=== PATIENT | male | born 1955 | race Caucasian/White ===

== ENCOUNTER 2017-12-30 12:33 | Observation (INO) | payer BC ==
[2017-12-30] MEDS ORDERED: Albuterol/Ipratropium 3.0-0.5 MG/3 ML Neb Soln NEB ONE (13:09)
[2017-12-30] MEDS ORDERED: methylPREDNISolone Sodium Succinate 125 MG/2 ML SDV IVPUSH ONE (13:19)
[2017-12-30] MEDS ORDERED: Sodium Chloride 0.9% 1,000 ML IV ONE (13:19)
[2017-12-30] MEDS ORDERED: methylPREDNISolone Sodium Succinate 125 MG/2 ML SDV ONE (13:35)
[2017-12-30] MEDS ORDERED: Acetaminophen 500 MG Tab PO ONE (13:44)
[2017-12-30 14:01] LABS: CHLORIDE,CL 104 mmol/L (98-107); SODIUM,NA 138 mmol/L (136-148)
[2017-12-30] MEDS ORDERED: cefTRIAXone 1 GM in Premix Bag 1 BAG IV ONE (14:23)
[2017-12-30] MEDS ORDERED: Azithromycin 500 MG in Sodium Chloride 0.9% 500 ML IV ONE (14:23)
--- NOTE | 2017-12-30 14:36 | EDM.PDOC ---
ED HPI GENERAL MEDICAL PROBLEM - General Chief Complaint: Respiratory Problem Stated Complaint: COLD Time Seen by Provider: 12/30/17 12:34 Source of Information: Reports: Patient History Limitations: Reports: No Limitations - History of Present Illness INITIAL COMMENTS - FREE TEXT/NARRATIVE: HISTORY AND PHYSICAL: History of present illness: Patient is a 62-year-old male who presents to the emergency room today with complaints of cough, fever, sore throat from coughing and chest congestion. He states he has not felt well since and has had a temperature of 103 at home. Patient denies any chest pain, abdominal pain, nausea, vomiting, diarrhea or constipation. He has no history of smoking. No history of lung diseases or conditions. Review of systems: As per history of present illness and below otherwise all systems reviewed and negative. Past medical history: As per history of present illness and as reviewed below otherwise noncontributory. Surgical history: As per history of present illness and as reviewed below otherwise noncontributory. Social history: No reported history of drug or alcohol abuse. Family history: As per history of present illness and as reviewed below otherwise noncontributory. Physical exam: General: Well-developed and well-nourished 62-year-old male. Alert and oriented. Nontoxic appearing but mildly unwell. HEENT: Atraumatic, normocephalic, pupils equal and reactive bilaterally, negative for conjunctival pallor or scleral icterus, mucous membranes moist, mild errythema to throat no exudate, neck supple, nontender, trachea midline. No drooling or trismus noted. No meningeal signs Lungs: Diminished lung sounds to bases bilaterally, breath sounds equal bilaterally, chest nontender. Heart: S1S2, regular rate and rhythm without overt murmur Abdomen: Soft, nondistended, nontender. Negative for masses or hepatosplenomegaly. Negative for costovertebral tenderness. Pelvis: Stable nontender. Genitourinary: Deferred. Rectal: Deferred. Skin: Intact, warm, dry. No lesions or rashes noted. Extremities: Atraumatic, negative for cords or calf pain. Neurovascular unremarkable. Neuro: Awake, alert, oriented. Cranial nerves II through XII unremarkable. Cerebellum unremarkable. Motor and sensory unremarkable throughout. Exam nonfocal. Notes: Upon patient arrival his oxygen saturation is 90-92% in room air, 94% on 2L. He does have diminished lung sounds to the lower lobes bilaterally. Appears he didn 't as he is resting on the cot with his eyes closed and a grimaced look. He is willing to have labs, IV fluids and medications and imaging done at this time. CBC shows a normal white count. CMP is within normal limits. Patient's influenza screen is negative. Chest x-ray shows no pneumonia or infiltrate. Patient remains at 90% while on room air. Do not feel comfortable with him going home. The patient and state that they are not comfortable being discharged. We'll consult Dr. Casillas for admission and add new labs. Dr. Casillas is agreeable to accepting this patient for observation. Patient and are aware. We'll continue to monitor. Diagnostics: CBC, CMP, troponin, x-ray, influenza strep, blood cultures 2 Therapeutics: IV fluid, Solu-Medrol, Rocephin, azithromycin Impression: Hypoxia Viral respiratory illness Plan: Observation to Med/Surg Definitive disposition and diagnosis as appropriate pending reevaluation and review of above. Onset Date: 12/28/17 Duration: Day(s): Location: Reports: Face, Neck, Chest Throat Pain Score (Numeric/FACES): 9 - Related Data Allergies Allergy/AdvReac Type Severity Reaction Status Date / Time No Known Allergies Allergy Verified 09/25/16 07:53 Home Meds: Home Meds Insulin Glargine,Hum.Rec.Anlog [Lantus Solostar] 35 unit SQ DAILY #1 pen [Rx] Past Medical History HEENT History: Reports: None Cardiovascular History: Reports: None Respiratory History: Reports: None Gastrointestinal History: Reports: None Genitourinary History: Reports: None Musculoskeletal History: Reports: None Neurological History: Reports: None Psychiatric History: Reports: None Endocrine/Metabolic History: Reports: Diabetes, Type II Hematologic History: Reports: None Immunologic History: Reports: None Oncologic (Cancer) History: Reports: None Dermatologic History: Reports: None - Infectious Disease History Infectious Disease History: Reports: Chicken Pox, Measles, Mumps - Past Surgical History Head Surgeries/Procedures: Reports: None HEENT Surgical History: Reports: None Cardiovascular Surgical History: Reports: None Respiratory Surgical History: Reports: None GI Surgical History: Reports: Hernia Repair/Other Male Surgical History: Reports: Other (See Below) Endocrine Surgical History: Reports: None Neurological Surgical History: Reports: None Musculoskeletal Surgical History: Reports: None Oncologic Surgical History: Reports: None Dermatological Surgical History: Reports: None Social & Family History - Family History Family Medical History: Noncontributory - Tobacco Use Smoking Status *Q: Never Smoker Second Hand Smoke Exposure: No - Caffeine Use Caffeine Use: Reports: Coffee, Tea Caffeine Use Comment: 1 cup of coffee. - Alcohol Use Days Per Week of Alcohol Use: 0 - Recreational Drug Use Recreational Drug Use: No ED ROS GENERAL - Review of Systems Review Of Systems: ROS reveals no pertinent complaints other than HPI. ED EXAM, GENERAL - Physical Exam Exam: See Below (See dictation) Course - Vital Signs Last Recorded V/S: Last Vital Signs Temp 101.5 F H 12/30/17 13:53 Pulse 123 H 12/30/17 12:46 Resp 20 12/30/17 12:46 BP 158/96 H 12/30/17 12:46 Pulse Ox 92 L 12/30/17 12:46 - Orders/Labs/Meds Orders: Active Orders 24 hr Category Date Time Status RT Aerosol Therapy [RC] ASDIRECTED Care 12/30/17 13:09 Active Chest 1V Frontal [CR] Stat Exams 12/30/17 13:09 Taken CULTURE BLOOD [BC] Stat Lab 12/30/17 14:33 Received CULTURE BLOOD [BC] Stat Lab 12/30/17 15:00 Received CULTURE STREP A CONFIRMATION [RM] Stat Lab 12/30/17 14:25 Results INFLUENZA A+B AG SCREEN [RM] Stat Lab 12/30/17 13:13 Ordered STREP SCRN A RAPID W CULT CONF [RM] Stat Lab 12/30/17 14:25 Ordered UA W/MICROSCOPIC [URIN] Stat Lab 12/30/17 14:23 Ordered Azithromycin [Zithromax] 500 mg Med 12/30/17 14:23 Active Sodium Chloride 0.9% [Normal Saline] 500 ml IV ONETIME Blood Culture x2 Reflex Set [OM.PC] Stat Oth 12/30/17 14:23 Ordered Medication Orders Azithromycin 500 mg/ Sodium (Chloride) 500 mls @ 250 mls/hr IV ONETIME ONE Stop: 12/30/17 16:22 Ceftriaxone Sodium 1,000 mg/ (Dextrose/Water) 50 mls @ 200 mls/hr IV ONETIME GORAN Last Admin: 12/30/17 15:05 Dose: 200 mls/hr Labs: Laboratory Tests 12/30/17 12/30/17 12/30/17 Range/Units 13:30 13:30 13:30 WBC 7.79 (4.0-11.0) K/uL RBC 5.69 (4.50-5.90) M/uL Hgb 17.4 H (13.0-17.0) g/dL Hct 49.9 (38.0-50.0) % MCV 87.7 (80.0-98.0) fL MCH 30.6 (27.0-32.0) pg MCHC 34.9 (31.0-37.0) g/dL RDW Std Deviation 44.8 (28.0-62.0) fl RDW Coeff of Bony 14 (11.0-15.0) % Plt Count 218 (150-400) K/uL MPV 9.70 (7.40-12.00) fL Neut % (Auto) 74.6 (48.0-80.0) % Lymph % (Auto) 16.0 (16.0-40.0) % Dunn % (Auto) 7.3 (0.0-15.0) % Eos % (Auto) 1.8 (0.0-7.0) % Baso % (Auto) 0.3 (0.0-1.5) % Neut # (Auto) 5.8 H (1.4-5.7) K/uL Lymph # (Auto) 1.3 (0.6-2.4) K/uL Dunn # (Auto) 0.6 (0.0-0.8) K/uL Eos # (Auto) 0.1 (0.0-0.7) K/uL Baso # (Auto) 0.0 (0.0-0.1) K/uL Nucleated RBC % 0.0 /100WBC Nucleated RBCs # 0 K/uL Sodium 138 (136-148) mmol/L Potassium 3.9 (3.5-5.1) mmol/L Chloride 104 (98-107) mmol/L Carbon Dioxide 24.4 (21.0-32.0) mmol/L BUN 12 (7.0-18.0) mg/dL Creatinine 1.0 (0.8-1.3) mg/dL Est Cr Clr Drug Dosing 79.08 mL/min Estimated GFR (MDRD) > 60.0 ml/min Glucose 173 H (74-106) mg/dL Calcium 8.3 L (8.5-10.1) mg/dL Total Bilirubin 0.7 (0.2-1.0) mg/dL AST 23 (15-37) IU/L ALT 30 (14-63) IU/L Alkaline Phosphatase 74 (46-116) U/L Troponin I < 0.050 (0.000-0.056) ng/mL Total Protein 7.4 (6.4-8.2) g/dL Albumin 3.4 (3.4-5.0) g/dL Globulin 4.0 H (2.0-3.5) g/dL Albumin/Globulin Ratio 0.9 L (1.3-2.8) Meds: Medications Generic Name Dose Route Start Last Admin Trade Name Freq PRN Reason Stop Dose Admin Azithromycin 500 mg/ Sodium 500 mls @ 250 mls/hr 12/30/17 14:23 Chloride IV 12/30/17 16:22 ONETIME ONE Ceftriaxone Sodium 1,000 mg/ 50 mls @ 200 mls/hr 12/30/17 15:15 12/30/17 15: 05 Dextrose/Water IV 200 mls/hr ONETIME GORAN Administration Discontinued Medications Generic Name Dose Route Start Last Admin Trade Name Rafaelq PRN Reason Stop Dose Admin Acetaminophen 1,000 mg 12/30/17 13:44 12/30/17 13:53 Tylenol Extra Strength PO 12/30/17 13:45 1,000 mg ONETIME ONE Administration Albuterol/Ipratropium 3 ml 12/30/17 13:09 12/30/17 13:18 Duoneb 3.0-0.5 Mg/3 Ml NEB 12/30/17 13:10 3 ml ONETIME ONE Administration Sodium Chloride 1,000 mls @ 999 mls/hr 12/30/17 13:19 12/30/17 13:34 Normal Saline IV 12/30/17 14:19 999 mls/hr STAT ONE Administration Ceftriaxone Sodium/Dextrose 1 50 mls @ 100 mls/hr 12/30/17 14:23 12/30/17 15: 05 gm/ Premix IV 12/30/17 14:52 Not Given ONETIME ONE Methylprednisolone Sodium Succinate 125 mg 12/30/17 13:19 12/30/17 13:34 Solu-Medrol IVPUSH 12/30/17 13:20 125 mg ONETIME ONE Administration Methylprednisolone Sodium Succinate Confirm 12/30/17 13:35 12/30/17 13:42 Solu-Medrol Administered 12/30/17 13:36 Not Given Dose 125 mg .ROUTE .STK-MED ONE Departure - Departure Time of Disposition: 15:12 Disposition: Refer to Observation Clinical Impression: Hypoxia, Viral respiratory illness - Discharge Information - My Orders Last 24 Hours: My Active Orders 12/30/17 13:09 RT Aerosol Therapy [RC] ASDIRECTED Chest 1V Frontal [CR] Stat 12/30/17 13:13 INFLUENZA A+B AG SCREEN [RM] Stat 12/30/17 14:23 UA W/MICROSCOPIC [URIN] Stat Azithromycin [Zithromax] 500 mg Sodium Chloride 0.9% [Normal Saline] 500 ml IV ONETIME Blood Culture x2 Reflex Set [OM.PC] Stat 12/30/17 14:25 CULTURE STREP A CONFIRMATION [RM] Stat STREP SCRN A RAPID W CULT CONF [RM] Stat 12/30/17 14:33 CULTURE BLOOD [BC] Stat 12/30/17 15:00 CULTURE BLOOD [BC] Stat - Assessment/Plan Last 24 Hours: My Active Orders 12/30/17 13:09 RT Aerosol Therapy [RC] ASDIRECTED Chest 1V Frontal [CR] Stat 12/30/17 13:13 INFLUENZA A+B AG SCREEN [RM] Stat 12/30/17 14:23 UA W/MICROSCOPIC [URIN] Stat Azithromycin [Zithromax] 500 mg Sodium Chloride 0.9% [Normal Saline] 500 ml IV ONETIME Blood Culture x2 Reflex Set [OM.PC] Stat 12/30/17 14:25 CULTURE STREP A CONFIRMATION [RM] Stat STREP SCRN A RAPID W CULT CONF [RM] Stat 12/30/17 14:33 CULTURE BLOOD [BC] Stat 12/30/17 15:00 CULTURE BLOOD [BC] Stat
[2017-12-30] MEDS ORDERED: Azithromycin 500 MG in Sodium Chloride 0.9% 250 ML IV ONE (15:15)
[2017-12-30] MEDS ORDERED: cefTRIAXone 1,000 MG in Dextrose 5% in Water 50 ML IV SCH ×2 (15:15)
[2017-12-30] MEDS ORDERED: Acetaminophen 325 MG Tab PO PRN (15:45)
[2017-12-30] MEDS: Sodium Chloride 0.9% 1,000 ML IV SCH (16:02)
[2017-12-30] MEDS: Insulin Aspart 100 Units/ML 3 ML Pen SUBCUT SCH (17:02)
[2017-12-30] MEDS ORDERED: Insulin Glargine,Human Rec. Analog 100 Units/ML 3 ML Pen SUBCUT SCH (21:00)
[2017-12-30] MEDS ORDERED: Enoxaparin 40 MG/0.4 ML Syringe SUBCUT SCH (22:15)
--- NOTE | 2017-12-30 22:17 | PCM.HP ---
H&P History of Present Illness - General Admit Problem/Dx: Admission Diagnosis/Problem Admission Diagnosis/Problem Hypoxia - History of Present Illness Initial Comments - Free Text/Narative: 62 yo male who presents with four day history of myagias, cough, and fevers. PAtient reports coworker has been sick with same symptoms. He reports generalized weakness and sore throat from coughing. Throat Pain Score (Numeric/FACES): 9 - Related Data Allergies/Adverse Reactions: Allergies Allergy/AdvReac Type Severity Reaction Status Date / Time No Known Allergies Allergy Verified 09/25/16 07:53 Home Medications: Home Meds Insulin Glargine,Hum.Rec.Anlog [Lantus Solostar] 50 unit SQ BEDTIME 12/30/17 [ History] Past Medical History HEENT History: Reports: None Cardiovascular History: Reports: None Respiratory History: Reports: None Gastrointestinal History: Reports: None Genitourinary History: Reports: None Musculoskeletal History: Reports: None Neurological History: Reports: None Psychiatric History: Reports: None Endocrine/Metabolic History: Reports: Diabetes, Type II Hematologic History: Reports: None Immunologic History: Reports: None Oncologic (Cancer) History: Reports: None Dermatologic History: Reports: None - Infectious Disease History Infectious Disease History: Reports: Chicken Pox, Measles, Mumps - Past Surgical History Head Surgeries/Procedures: Reports: None HEENT Surgical History: Reports: None Cardiovascular Surgical History: Reports: None Respiratory Surgical History: Reports: None GI Surgical History: Reports: Hernia Repair/Other Male Surgical History: Reports: Other (See Below) Endocrine Surgical History: Reports: None Neurological Surgical History: Reports: None Musculoskeletal Surgical History: Reports: None Oncologic Surgical History: Reports: None Dermatological Surgical History: Reports: None Social & Family History - Family History Family Medical History: Noncontributory - Tobacco Use Smoking Status *Q: Never Smoker Second Hand Smoke Exposure: No - Caffeine Use Caffeine Use: Reports: Coffee, Tea Caffeine Use Comment: 1 cup of coffee. - Alcohol Use Days Per Week of Alcohol Use: 0 - Recreational Drug Use Recreational Drug Use: No H&P Review of Systems - Review of Systems: Review Of Systems: ROS reveals no pertinent complaints other than HPI. Exam - Exam Exam: See Below - Vital Signs Vital Signs: Last Vital Signs Temp 36.8 C 12/30/17 15:10 Pulse 118 H 12/30/17 15:10 Resp 22 H 12/30/17 15:10 BP 155/86 H 12/30/17 15:10 Pulse Ox 96 12/30/17 15:10 Weight: 103.555 kg - Exam General: Alert, Oriented HEENT: Mucosa Moist & [place] Neck: Supple. No: JVD Lungs: Clear to Auscultation, Normal Respiratory Effort. No: Crackles, Rales, Wheezing Cardiovascular: Regular Rate, Regular Rhythm GI/Abdominal Exam: Normal Bowel Sounds, Soft, Non-Tender, No Distention Extremities: Non-Tender, No Pedal Edema Skin: Warm, Dry, Intact - Patient Data Lab Results Last 24 hrs: Laboratory Results - last 24 hr 12/30/17 12/30/17 12/30/17 Range/Units 13:30 13:30 13:30 WBC 7.79 (4.0-11.0) K/uL RBC 5.69 (4.50-5.90) M/uL Hgb 17.4 H (13.0-17.0) g/dL Hct 49.9 (38.0-50.0) % MCV 87.7 (80.0-98.0) fL MCH 30.6 (27.0-32.0) pg MCHC 34.9 (31.0-37.0) g/dL RDW Std Deviation 44.8 (28.0-62.0) fl RDW Coeff of Bony 14 (11.0-15.0) % Plt Count 218 (150-400) K/uL MPV 9.70 (7.40-12.00) fL Neut % (Auto) 74.6 (48.0-80.0) % Lymph % (Auto) 16.0 (16.0-40.0) % Pope % (Auto) 7.3 (0.0-15.0) % Eos % (Auto) 1.8 (0.0-7.0) % Baso % (Auto) 0.3 (0.0-1.5) % Neut # (Auto) 5.8 H (1.4-5.7) K/uL Lymph # (Auto) 1.3 (0.6-2.4) K/uL Pope # (Auto) 0.6 (0.0-0.8) K/uL Eos # (Auto) 0.1 (0.0-0.7) K/uL Baso # (Auto) 0.0 (0.0-0.1) K/uL Nucleated RBC % 0.0 /100WBC Nucleated RBCs # 0 K/uL Sodium 138 (136-148) mmol/L Potassium 3.9 (3.5-5.1) mmol/L Chloride 104 (98-107) mmol/L Carbon Dioxide 24.4 (21.0-32.0) mmol/L BUN 12 (7.0-18.0) mg/dL Creatinine 1.0 (0.8-1.3) mg/dL Est Cr Clr Drug Dosing 79.08 mL/min Estimated GFR (MDRD) > 60.0 ml/min Glucose 173 H (74-106) mg/dL POC Glucose (60-110) mg/dL Calcium 8.3 L (8.5-10.1) mg/dL Total Bilirubin 0.7 (0.2-1.0) mg/dL AST 23 (15-37) IU/L ALT 30 (14-63) IU/L Alkaline Phosphatase 74 (46-116) U/L Troponin I < 0.050 (0.000-0.056) ng/mL Total Protein 7.4 (6.4-8.2) g/dL Albumin 3.4 (3.4-5.0) g/dL Globulin 4.0 H (2.0-3.5) g/dL Albumin/Globulin Ratio 0.9 L (1.3-2.8) Urine Color Urine Appearance Urine pH (5.0-8.0) Ur Specific Alexander (1.001-1.035) Urine Protein (NEGATIVE) mg/dL Urine Glucose (UA) (NEGATIVE) mg/dL Urine Ketones (NEGATIVE) mg/dL Urine Occult Blood (NEGATIVE) Urine Nitrite (NEGATIVE) Urine Bilirubin (NEGATIVE) Urine Urobilinogen (<2.0) EU/dL Ur Leukocyte Esterase (NEGATIVE) Urine RBC (0-2/HPF) Urine WBC (0-5/HPF) Ur Epithelial Cells (NONE-FEW) Urine Bacteria (NEGATIVE) 12/30/17 12/30/17 Range/Units 16:07 18:40 WBC (4.0-11.0) K/uL RBC (4.50-5.90) M/uL Hgb (13.0-17.0) g/dL Hct (38.0-50.0) % MCV (80.0-98.0) fL MCH (27.0-32.0) pg MCHC (31.0-37.0) g/dL RDW Std Deviation (28.0-62.0) fl RDW Coeff of Bony (11.0-15.0) % Plt Count (150-400) K/uL MPV (7.40-12.00) fL Neut % (Auto) (48.0-80.0) % Lymph % (Auto) (16.0-40.0) % Pope % (Auto) (0.0-15.0) % Eos % (Auto) (0.0-7.0) % Baso % (Auto) (0.0-1.5) % Neut # (Auto) (1.4-5.7) K/uL Lymph # (Auto) (0.6-2.4) K/uL Pope # (Auto) (0.0-0.8) K/uL Eos # (Auto) (0.0-0.7) K/uL Baso # (Auto) (0.0-0.1) K/uL Nucleated RBC % /100WBC Nucleated RBCs # K/uL Sodium (136-148) mmol/L Potassium (3.5-5.1) mmol/L Chloride (98-107) mmol/L Carbon Dioxide (21.0-32.0) mmol/L BUN (7.0-18.0) mg/dL Creatinine (0.8-1.3) mg/dL Est Cr Clr Drug Dosing mL/min Estimated GFR (MDRD) ml/min Glucose (74-106) mg/dL POC Glucose 183 H (60-110) mg/dL Calcium (8.5-10.1) mg/dL Total Bilirubin (0.2-1.0) mg/dL AST (15-37) IU/L ALT (14-63) IU/L Alkaline Phosphatase (46-116) U/L Troponin I (0.000-0.056) ng/mL Total Protein (6.4-8.2) g/dL Albumin (3.4-5.0) g/dL Globulin (2.0-3.5) g/dL Albumin/Globulin Ratio (1.3-2.8) Urine Color YELLOW Urine Appearance HAZY Urine pH 5.5 (5.0-8.0) Ur Specific Alexander 1.020 (1.001-1.035) Urine Protein NEGATIVE (NEGATIVE) mg/dL Urine Glucose (UA) 250 H (NEGATIVE) mg/dL Urine Ketones >=80 (NEGATIVE) mg/dL Urine Occult Blood NEGATIVE (NEGATIVE) Urine Nitrite NEGATIVE (NEGATIVE) Urine Bilirubin NEGATIVE (NEGATIVE) Urine Urobilinogen 0.2 (<2.0) EU/dL Ur Leukocyte Esterase NEGATIVE (NEGATIVE) Urine RBC 0-1 (0-2/HPF) Urine WBC 2-4 (0-5/HPF) Ur Epithelial Cells RARE (NONE-FEW) Urine Bacteria FEW (NEGATIVE) Result Diagrams: 12/31/17 05:20 12/31/17 05:20 Cb Results Last 24 hrs: Microbiology 12/30/17 14:25 Group A Streptococcus Rapid Screen - Final Throat NEGATIVE STREP A SCREEN 12/30/17 13:13 Influenza Type A Antigen Screen - Final Nasopharyngeal Swab NEGATIVE INFLUENZA A VIRUS AG Influenza Type B Antigen Screen - Final NEGATIVE INFLUENZA B VIRUS AG Problem List Initiated/Reviewed/Updated: Yes Orders Last 24hrs: Active Orders 24 hr Category Date Time Status Admission Status [Patient Status] [ADT] Stat ADT 12/30/17 14:44 Active Blood Glucose Check, Bedside [RC] TIDMEALS Care 12/30/17 17:00 Active Oxygen Therapy [RC] PRN Care 12/30/17 22:10 Ordered RT Aerosol Therapy [RC] ASDIRECTED Care 12/30/17 13:09 Active Up ad Heather [RC] ASDIRECTED Care 12/30/17 22:10 Ordered VTE/DVT Education [RC] PER UNIT ROUTINE Care 12/30/17 22:10 Ordered Vital Signs [RC] Q4H Care 12/30/17 22:10 Ordered [employer] Diet [DIET] Diet 12/30/17 Dinner Active Regular Diet [DIET] Diet 12/30/17 Breakfast Ordered Chest 1V Frontal [CR] Stat Exams 12/30/17 13:09 Taken BASIC METABOLIC PANEL,BMP [CHEM] Routine Lab 12/31/17 05:00 Ordered CBC WITH AUTO DIFF [HEME] Routine Lab 12/31/17 05:00 Ordered CULTURE BLOOD [BC] Stat Lab 12/30/17 14:33 Received CULTURE BLOOD [BC] Stat Lab 12/30/17 15:00 Received CULTURE SPUTUM + SMEAR [RM] Routine Lab 12/30/17 15:40 Ordered CULTURE STREP A CONFIRMATION [] Stat Lab 12/30/17 14:25 Results INFLUENZA A+B AG SCREEN [] Stat Lab 12/30/17 13:13 Ordered STREP SCRN A RAPID W CULT CONF [RM] Stat Lab 12/30/17 14:25 Ordered UA W/MICROSCOPIC [URIN] Stat Lab 12/30/17 18:40 Ordered Acetaminophen [Tylenol] Med 12/30/17 15:45 Active 650 mg PO Q6H PRN Azithromycin [Zithromax] Med 12/31/17 15:00 Ordered 500 mg PO Q24H Enoxaparin [Lovenox] Med 12/30/17 22:15 Ordered 40 mg SUBCUT Q24H Insulin Aspart [NovoLOG] Med 12/30/17 17:00 Active See Protocol SUBCUT TIDAC Insulin Glarg,Human.Rec.Analog [LantUS Solostar] Med 12/30/17 21:00 Active 50 units SUBCUT BEDTIME Sodium Chloride 0.9% [Normal Saline] 1,000 ml Med 12/30/17 15:45 Active IV ASDIRECTED cefTRIAXone [Rocephin] Med 12/31/17 15:00 Ordered 1,000 mg IVPUSH Q24H cefTRIAXone [Rocephin] 1,000 mg Med 12/30/17 15:15 Active Dextrose 5% in Water 50 ml IV ONETIME Blood Culture x2 Reflex Set [OM.PC] Stat Oth 12/30/17 14:23 Ordered Sequential Compression Device [OM.PC] Per Unit Routine Oth 12/30/17 22:11 Ordered Resuscitation Status Routine Resus Stat 12/30/17 22:10 Ordered Medication Orders Acetaminophen (Tylenol) 650 mg PO Q6H PRN PRN Reason: Pain Azithromycin (Zithromax) 500 mg PO Q24H GORAN Ceftriaxone Sodium (Rocephin) 1,000 mg IVPUSH Q24H GORAN Enoxaparin Sodium (Lovenox) 40 mg SUBCUT Q24H GORAN Ceftriaxone Sodium 1,000 mg/ (Dextrose/Water) 50 mls @ 200 mls/hr IV ONETIME GORAN Last Admin: 12/30/17 15:05 Dose: 200 mls/hr Sodium Chloride (Normal Saline) 1,000 mls @ 125 mls/hr IV ASDIRECTED GORAN Last Admin: 12/30/17 16:02 Dose: 125 mls/hr Insulin Aspart (Novolog) 0 unit SUBCUT TIDAC [facility]; Protocol Last Admin: 12/30/17 17:02 Dose: 2 units Insulin Glargine (Lantus Solostar) 50 units SUBCUT BEDTIME GORAN Last Admin: 12/30/17 21:53 Dose: 50 units Assessment/Plan Comment:: 62 yo male with pmh of DM who is admitted with pneumonia. CXR clear but symptoms are suggestive of pneumonia. We will treat with Rocephin and azithromycin. Patient received solumedrol in the ED. Will resume lantus.
[2017-12-31] MEDS: Sodium Chloride 0.9% 1,000 ML IV SCH (01:57)
[2017-12-31 06:09] LABS: CHLORIDE,CL 107 mmol/L (98-107); SODIUM,NA 140 mmol/L (136-148)
[2017-12-31] MEDS: Insulin Aspart 100 Units/ML 3 ML Pen SUBCUT SCH (08:06)
--- NOTE | 2017-12-31 08:46 | PCM.DCSUM1 ---
Discharge Summary - Discharge Data Discharge Date: 12/31/17 Discharge Disposition: Home, Self-Care 01 Condition: Good - Patient Summary/Data Hospital Course: 62 yo male who presents with four day history of myagias, cough, and fevers. Chest x-ray was clear. Patient was admitted for pneumonia. He was treated with Rocephin and Azithromycin. His fevers had resolved and today he is requesting discharge. He was discharged home on Azithromycin for five more days. - Patient Instructions Diet: Diabetic Diet - Discharge Plan Prescriptions/Med Rec: Azithromycin [IJD: Azithromycin] 250 mg PO DAILY #6 tab Home Medications: Home Meds Insulin Glargine,Hum.Rec.Anlog [Lantus Solostar] 50 unit SQ BEDTIME 12/30/17 [ History] Azithromycin [IJD: Azithromycin] 250 mg PO DAILY #6 tab 12/31/17 [Rx] Patient Handouts: Shortness of Breath, Adult, [id number] Referrals: Jassi Maldonado MD [Ordering Only Provider] - - Patient Data Vitals - Most Recent: Last Vital Signs Temp 36.8 C 12/31/17 04:00 Pulse 96 12/31/17 04:00 Resp 18 12/31/17 04:00 BP 124/65 12/31/17 04:00 Pulse Ox 95 12/31/17 04:00 Weight - Most Recent: 103.555 kg I&O - Last 24 hours: Intake & Output 12/30/17 12/31/17 12/31/17 22:59 06:59 14:59 Intake Total 250 1800 Output Total 1600 Balance 250 200 Lab Results - Last 24 hrs: Laboratory Results - last 24 hr 12/30/17 12/30/17 12/30/17 Range/Units 13:30 13:30 13:30 WBC 7.79 (4.0-11.0) K/uL RBC 5.69 (4.50-5.90) M/uL Hgb 17.4 H (13.0-17.0) g/dL Hct 49.9 (38.0-50.0) % MCV 87.7 (80.0-98.0) fL MCH 30.6 (27.0-32.0) pg MCHC 34.9 (31.0-37.0) g/dL RDW Std Deviation 44.8 (28.0-62.0) fl RDW Coeff of Bony 14 (11.0-15.0) % Plt Count 218 (150-400) K/uL MPV 9.70 (7.40-12.00) fL Neut % (Auto) 74.6 (48.0-80.0) % Lymph % (Auto) 16.0 (16.0-40.0) % Johnston % (Auto) 7.3 (0.0-15.0) % Eos % (Auto) 1.8 (0.0-7.0) % Baso % (Auto) 0.3 (0.0-1.5) % Neut # (Auto) 5.8 H (1.4-5.7) K/uL Lymph # (Auto) 1.3 (0.6-2.4) K/uL Johnston # (Auto) 0.6 (0.0-0.8) K/uL Eos # (Auto) 0.1 (0.0-0.7) K/uL Baso # (Auto) 0.0 (0.0-0.1) K/uL Nucleated RBC % 0.0 /100WBC Nucleated RBCs # 0 K/uL Sodium 138 (136-148) mmol/L Potassium 3.9 (3.5-5.1) mmol/L Chloride 104 (98-107) mmol/L Carbon Dioxide 24.4 (21.0-32.0) mmol/L BUN 12 (7.0-18.0) mg/dL Creatinine 1.0 (0.8-1.3) mg/dL Est Cr Clr Drug Dosing 79.08 mL/min Estimated GFR (MDRD) > 60.0 ml/min Glucose 173 H (74-106) mg/dL POC Glucose (60-110) mg/dL Calcium 8.3 L (8.5-10.1) mg/dL Total Bilirubin 0.7 (0.2-1.0) mg/dL AST 23 (15-37) IU/L ALT 30 (14-63) IU/L Alkaline Phosphatase 74 (46-116) U/L Troponin I < 0.050 (0.000-0.056) ng/mL Total Protein 7.4 (6.4-8.2) g/dL Albumin 3.4 (3.4-5.0) g/dL Globulin 4.0 H (2.0-3.5) g/dL Albumin/Globulin Ratio 0.9 L (1.3-2.8) Urine Color Urine Appearance Urine pH (5.0-8.0) Ur Specific Roy (1.001-1.035) Urine Protein (NEGATIVE) mg/dL Urine Glucose (UA) (NEGATIVE) mg/dL Urine Ketones (NEGATIVE) mg/dL Urine Occult Blood (NEGATIVE) Urine Nitrite (NEGATIVE) Urine Bilirubin (NEGATIVE) Urine Urobilinogen (<2.0) EU/dL Ur Leukocyte Esterase (NEGATIVE) Urine RBC (0-2/HPF) Urine WBC (0-5/HPF) Ur Epithelial Cells (NONE-FEW) Urine Bacteria (NEGATIVE) 12/30/17 12/30/17 12/31/17 Range/Units 16:07 18:40 05:20 WBC 8.93 (4.0-11.0) K/uL RBC 5.22 (4.50-5.90) M/uL Hgb 15.7 (13.0-17.0) g/dL Hct 45.9 (38.0-50.0) % MCV 87.9 (80.0-98.0) fL MCH 30.1 (27.0-32.0) pg MCHC 34.2 (31.0-37.0) g/dL RDW Std Deviation 44.8 (28.0-62.0) fl RDW Coeff of Bony 14 (11.0-15.0) % Plt Count 247 (150-400) K/uL MPV 9.90 (7.40-12.00) fL Neut % (Auto) 84.3 H (48.0-80.0) % Lymph % (Auto) 10.3 L (16.0-40.0) % Johnston % (Auto) 5.4 (0.0-15.0) % Eos % (Auto) 0.0 (0.0-7.0) % Baso % (Auto) 0.0 (0.0-1.5) % Neut # (Auto) 7.5 H (1.4-5.7) K/uL Lymph # (Auto) 0.9 (0.6-2.4) K/uL Johnston # (Auto) 0.5 (0.0-0.8) K/uL Eos # (Auto) 0.0 (0.0-0.7) K/uL Baso # (Auto) 0.0 (0.0-0.1) K/uL Nucleated RBC % 0.0 /100WBC Nucleated RBCs # 0 K/uL Sodium (136-148) mmol/L Potassium (3.5-5.1) mmol/L Chloride (98-107) mmol/L Carbon Dioxide (21.0-32.0) mmol/L BUN (7.0-18.0) mg/dL Creatinine (0.8-1.3) mg/dL Est Cr Clr Drug Dosing mL/min Estimated GFR (MDRD) ml/min Glucose (74-106) mg/dL POC Glucose 183 H (60-110) mg/dL Calcium (8.5-10.1) mg/dL Total Bilirubin (0.2-1.0) mg/dL AST (15-37) IU/L ALT (14-63) IU/L Alkaline Phosphatase (46-116) U/L Troponin I (0.000-0.056) ng/mL Total Protein (6.4-8.2) g/dL Albumin (3.4-5.0) g/dL Globulin (2.0-3.5) g/dL Albumin/Globulin Ratio (1.3-2.8) Urine Color YELLOW Urine Appearance HAZY Urine pH 5.5 (5.0-8.0) Ur Specific Roy 1.020 (1.001-1.035) Urine Protein NEGATIVE (NEGATIVE) mg/dL Urine Glucose (UA) 250 H (NEGATIVE) mg/dL Urine Ketones >=80 (NEGATIVE) mg/dL Urine Occult Blood NEGATIVE (NEGATIVE) Urine Nitrite NEGATIVE (NEGATIVE) Urine Bilirubin NEGATIVE (NEGATIVE) Urine Urobilinogen 0.2 (<2.0) EU/dL Ur Leukocyte Esterase NEGATIVE (NEGATIVE) Urine RBC 0-1 (0-2/HPF) Urine WBC 2-4 (0-5/HPF) Ur Epithelial Cells RARE (NONE-FEW) Urine Bacteria FEW (NEGATIVE) 12/31/17 12/31/17 Range/Units 05:20 05:20 WBC (4.0-11.0) K/uL RBC (4.50-5.90) M/uL Hgb (13.0-17.0) g/dL Hct (38.0-50.0) % MCV (80.0-98.0) fL MCH (27.0-32.0) pg MCHC (31.0-37.0) g/dL RDW Std Deviation (28.0-62.0) fl RDW Coeff of Bony (11.0-15.0) % Plt Count (150-400) K/uL MPV (7.40-12.00) fL Neut % (Auto) (48.0-80.0) % Lymph % (Auto) (16.0-40.0) % Johnston % (Auto) (0.0-15.0) % Eos % (Auto) (0.0-7.0) % Baso % (Auto) (0.0-1.5) % Neut # (Auto) (1.4-5.7) K/uL Lymph # (Auto) (0.6-2.4) K/uL Johnston # (Auto) (0.0-0.8) K/uL Eos # (Auto) (0.0-0.7) K/uL Baso # (Auto) (0.0-0.1) K/uL Nucleated RBC % /100WBC Nucleated RBCs # K/uL Sodium 140 (136-148) mmol/L Potassium 4.0 (3.5-5.1) mmol/L Chloride 107 (98-107) mmol/L Carbon Dioxide 24.3 (21.0-32.0) mmol/L BUN 18 (7.0-18.0) mg/dL Creatinine 1.0 (0.8-1.3) mg/dL Est Cr Clr Drug Dosing 79.08 mL/min Estimated GFR (MDRD) > 60.0 ml/min Glucose 263 H (74-106) mg/dL POC Glucose 234 H (60-110) mg/dL Calcium 8.3 L (8.5-10.1) mg/dL Total Bilirubin (0.2-1.0) mg/dL AST (15-37) IU/L ALT (14-63) IU/L Alkaline Phosphatase (46-116) U/L Troponin I (0.000-0.056) ng/mL Total Protein (6.4-8.2) g/dL Albumin (3.4-5.0) g/dL Globulin (2.0-3.5) g/dL Albumin/Globulin Ratio (1.3-2.8) Urine Color Urine Appearance Urine pH (5.0-8.0) Ur Specific Roy (1.001-1.035) Urine Protein (NEGATIVE) mg/dL Urine Glucose (UA) (NEGATIVE) mg/dL Urine Ketones (NEGATIVE) mg/dL Urine Occult Blood (NEGATIVE) Urine Nitrite (NEGATIVE) Urine Bilirubin (NEGATIVE) Urine Urobilinogen (<2.0) EU/dL Ur Leukocyte Esterase (NEGATIVE) Urine RBC (0-2/HPF) Urine WBC (0-5/HPF) Ur Epithelial Cells (NONE-FEW) Urine Bacteria (NEGATIVE) MEGAN Results - Last 24 hrs: Microbiology 12/30/17 14:25 Group A Streptococcus Rapid Screen - Final Throat NEGATIVE STREP A SCREEN 12/30/17 13:13 Influenza Type A Antigen Screen - Final Nasopharyngeal Swab NEGATIVE INFLUENZA A VIRUS AG Influenza Type B Antigen Screen - Final NEGATIVE INFLUENZA B VIRUS AG Med Orders - Current: Current Medications Acetaminophen (Tylenol) 650 mg PO Q6H PRN PRN Reason: Pain Azithromycin (Zithromax) 500 mg PO Q24H [facility] Enoxaparin Sodium (Lovenox) 40 mg SUBCUT Q24H [facility] Last Admin: 12/30/17 23:27 Dose: 40 mg Ceftriaxone Sodium 1,000 mg/ (Dextrose/Water) 50 mls @ 200 mls/hr IV ONETIME [facility] Last Admin: 12/30/17 15:05 Dose: 200 mls/hr Sodium Chloride (Normal Saline) 1,000 mls @ 125 mls/hr IV ASDIRECTED [facility] Last Admin: 12/31/17 01:57 Dose: 125 mls/hr Ceftriaxone Sodium/Dextrose 1 (gm/ Premix) 50 mls @ 100 mls/hr IV Q24H [facility] Insulin Aspart (Novolog) 0 unit SUBCUT TIDAC [facility]; Protocol Last Admin: 12/31/17 08:06 Dose: 4 units Insulin Glargine (Lantus Solostar) 50 units SUBCUT BEDTIME [facility] Last Admin: 12/30/17 21:53 Dose: 50 units Discontinued Medications Acetaminophen (Tylenol Extra Strength) 1,000 mg PO ONETIME ONE Stop: 12/30/17 13:45 Last Admin: 12/30/17 13:53 Dose: 1,000 mg Albuterol/Ipratropium (Duoneb 3.0-0.5 Mg/3 Ml) 3 ml NEB ONETIME ONE Stop: 12/30/17 13:10 Last Admin: 12/30/17 13:18 Dose: 3 ml Sodium Chloride (Normal Saline) 1,000 mls @ 999 mls/hr IV STAT ONE Stop: 12/30/17 14:19 Last Admin: 12/30/17 13:34 Dose: 999 mls/hr Ceftriaxone Sodium/Dextrose 1 (gm/ Premix) 50 mls @ 100 mls/hr IV ONETIME ONE Stop: 12/30/17 14:52 Last Admin: 12/30/17 15:05 Dose: Not Given Azithromycin 500 mg/ Sodium (Chloride) 250 mls @ 125 mls/hr IV ONETIME ONE Stop: 12/30/17 17:14 Last Admin: 12/30/17 16:16 Dose: 125 mls/hr Methylprednisolone Sodium Succinate (Solu-Medrol) 125 mg IVPUSH ONETIME ONE Stop: 12/30/17 13:20 Last Admin: 12/30/17 13:34 Dose: 125 mg Methylprednisolone Sodium Succinate (Solu-Medrol) Confirm Administered Dose 125 mg .ROUTE .STK-MED ONE Stop: 12/30/17 13:36 Last Admin: 12/30/17 13:42 Dose: Not Given
[2017-12-31 09:44] VITALS: BP 143/87
[2017-12-31] MEDS ORDERED: cefTRIAXone 1,000 MG VIAL IVPUSH SCH (15:00)
[2017-12-31] MEDS ORDERED: Azithromycin 250 MG Tab PO SCH (15:00)
[2017-12-31] MEDS ORDERED: cefTRIAXone 1 GM in Premix Bag 1 BAG IV SCH (15:00)
[2017-12-31] MEDS ORDERED: cefTRIAXone 1,000 MG in Dextrose 5% in Water 50 ML IV SCH ×2 (15:00)
--- NOTE | 2018-01-01 10:21 | CR ---
EXAM DATE: 12/30/17 PATIENT'S AGE: 62 Patient: MARISOL SIMPSON Facility: [place], [place] Site . Site : [id number] Study: XRay Chest [id number] 1:57:26 PM Ordering Physician: Doctor Dietrich Final Report: INDICATION: cough/congestion/fever/chills TECHNIQUE: Portable AP chest film submitted. COMPARISON: None. FINDINGS: Heart size and pulmonary vasculature within normal limits. There is a rounded density in the region of the left anterior 1st rib which is probably related to degenerative spurring. Recommend comparison to any prior chest films when available. No acute infiltrates are seen. IMPRESSION: No acute abnormality. Density at the left apex. Recommend comparison to old films when available. Dictated by Manolo Figueroa MD @ 12/30/2017 2:12:19 PM Dictated by: Manolo Figueroa MD @ 12/30/2017 14:12:25 (Electronic Signature) Report Signed by Proxy. LEELA
== END 2017-12-31 09:50 | disposition home or self-care (01) ==
LOC: MW.ED 12:33 → MW.MS 14:44
PROVIDERS: ADMIT Internal Medicine; ATTEND Internal Medicine
DX: J18.9 Pneumonia, unspecified organism (principal); E11.9 Type 2 diabetes mellitus without complications; Z79.4 Long term (current) use of insulin; Z79.899 Other long term (current) drug therapy
CPT/HCPCS: 36415; 71045; 80048; 80053; 81001; 82962; 84484; 85025; 87040; 87081; 87804; 87880; 94640; 96361; 96374; 96375; 99284; A9270; J0456; J0696; J1650; J1815; J2930; J7040; J7050; J7060; 96365; 96366; 96372; 99283; G0378